=== PATIENT | female | born 1990 | race Caucasian/White ===

== ENCOUNTER 2017-09-12 02:11 | Emergency (ER) | payer MEDICAID ==
[2017-09-12] MEDS: IBUPROFEN 600 MG TAB PO (04:11)
== END 2017-09-12 04:51 | disposition home or self-care (01) ==
LOC: FTE 02:11
DX: O99.89 Other specified diseases and conditions complicating pregnancy, childbirth and the puerperium (principal); H65.01 Acute serous otitis media, right ear; Z3A.30 30 weeks gestation of pregnancy
CPT/HCPCS: 99283; Z7502

== ENCOUNTER 2017-09-14 19:23 | Outpatient (CLI) | payer MEDICAID ==
[2017-09-14 20:52] LABS: ADD MAN DIFF? NO
[2017-09-14 20:57] LABS: BASOPHILS % 0.4 % (0.0-2.0); EOSINOPHILS # 0.1 10^3/ul (0.0-0.5); EOSINOPHILS % 1.6 % (0.0-7.0); HEMATOCRIT 33.7 % (37.0-47.0); HEMOGLOBIN 11.4 g/dl (12.0-16.0); LYMPHOCYTES # 1.8 10^3/ul (0.8-2.9); LYMPHOCYTES % 24.3 % (15.0-51.0); MEAN CORPUSCULAR HEMOGLOBIN 29.2 pg (29.0-33.0); MEAN CORPUSCULAR HGB CONC 33.8 g/dl (32.0-37.0); MEAN CORPUSCULAR VOLUME 86.4 fl (82.0-101.0); MEAN PLATELET VOLUME 10.1 fl (7.4-10.4); MONOCYTE # 0.7 10^3/ul (0.3-0.9); MONOCYTES % 9.1 % (0.0-11.0); NEUTROPHIL # 4.9 10^3/ul (1.6-7.5); NEUTROPHILS % 64.2 % (39.0-77.0); PLATELET COUNT 263 10^3/UL (140-415); RED CELL DISTRIBUTION WIDTH 14.7 % (11.5-14.5)
[2017-09-14 20:57] LABS: WHITE BLOOD COUNT 7.6 10^3/ul (4.8-10.8)
[2017-09-14 21:04] LABS: ADD UMIC YES; UR ASCORBIC ACID NEGATIVE (NEGATIVE); UR BACTERIA FEW /HPF (NONE SEEN); UR BILIRUBIN (Dip) NEGATIVE (NEGATIVE); UR BLOOD (Dip) NEGATIVE (NEGATIVE); UR CLARITY CLEAR (CLEAR); UR COLOR STRAW (YELLOW); UR GLUCOSE (Dip) NEGATIVE (NEGATIVE); UR KETONES (Dip) NEGATIVE (NEGATIVE); UR LEUKOCYTE ESTERASE (Dip) TRACE Leu/ul (NEGATIVE); UR NITRITE (Dip) NEGATIVE (NEGATIVE); UR RBC 1 /HPF (0-5); UR SPECIFIC GRAVITY (Dip) 1.006 (1.003-1.030); UR SQUAMOUS EPITHELIAL CELL FEW /HPF (FEW); UR TOTAL PROTEIN (Dip) NEGATIVE (NEGATIVE); UR UROBILINOGEN (Dip) NEGATIVE (NEGATIVE); UR WBC 1 /HPF (0-5)
[2017-09-14] MEDS ORDERED: LIDOCAINE 1.5%/EPI MPF (SDV) 30 ML VIAL (21:59)
== END 2017-09-14 23:11 | disposition home or self-care (01) ==
LOC: OBT 19:23 → L-D 19:25 → OBT 23:11
DX: O26.892 Other specified pregnancy related conditions, second trimester (principal); R10.2 Pelvic and perineal pain; Z3A.25 25 weeks gestation of pregnancy
CPT/HCPCS: 76815; 76817; 81001; 85025; 87086

== ENCOUNTER 2017-10-06 14:04 | Outpatient (CLI) | payer MEDICAID ==
[2017-10-06 14:43] LABS: ADD MAN DIFF? NO
[2017-10-06 14:45] LABS: WHITE BLOOD COUNT 6.5 10^3/ul (4.8-10.8)
[2017-10-06 14:45] LABS: BASOPHILS % 0.5 % (0.0-2.0); EOSINOPHILS % 0.6 % (0.0-7.0); HEMATOCRIT 33.2 % (37.0-47.0); HEMOGLOBIN 11.3 g/dl (12.0-16.0); LYMPHOCYTES # 1.4 10^3/ul (0.8-2.9); LYMPHOCYTES % 21.6 % (15.0-51.0); MEAN CORPUSCULAR VOLUME 85.1 fl (82.0-101.0); MEAN PLATELET VOLUME 10.8 fl (7.4-10.4); MONOCYTE # 0.7 10^3/ul (0.3-0.9); MONOCYTES % 10.1 % (0.0-11.0); NEUTROPHIL # 4.3 10^3/ul (1.6-7.5); NEUTROPHILS % 66.9 % (39.0-77.0); PLATELET COUNT 242 10^3/UL (140-415); RED CELL DISTRIBUTION WIDTH 14.6 % (11.5-14.5)
[2017-10-06 14:51] LABS: ADD UMIC NO; UR AMORPHOUS CRYSTAL FEW /HPF (NONE SEEN); UR ASCORBIC ACID NEGATIVE (NEGATIVE); UR BACTERIA FEW /HPF (NONE SEEN); UR BILIRUBIN (Dip) NEGATIVE (NEGATIVE); UR BLOOD (Dip) NEGATIVE (NEGATIVE); UR CLARITY SLIGHTLY CLOUDY (CLEAR); UR COLOR YELLOW (YELLOW); UR GLUCOSE (Dip) NEGATIVE (NEGATIVE); UR KETONES (Dip) NEGATIVE (NEGATIVE); UR LEUKOCYTE ESTERASE (Dip) NEGATIVE Leu/ul (NEGATIVE); UR NITRITE (Dip) NEGATIVE (NEGATIVE); UR RBC 4 /HPF (0-5); UR SPECIFIC GRAVITY (Dip) 1.008 (1.003-1.030); UR SQUAMOUS EPITHELIAL CELL FEW /HPF (FEW); UR TOTAL PROTEIN (Dip) NEGATIVE (NEGATIVE); UR UROBILINOGEN (Dip) NEGATIVE (NEGATIVE); UR WBC 4 /HPF (0-5)
[2017-10-06 15:02] LABS: ALANINE AMINOTRANSFERASE 25 IU/L (13-69); ALBUMIN 3.5 g/dl (3.3-4.9); ALBUMIN/GLOBULIN RATIO 1.12; ALKALINE PHOSPHATASE 131 IU/L (42-121); ANION GAP 14 (8-16); ASPARTATE AMINO TRANSFERASE 14 IU/L (15-46); BILIRUBIN,INDIRECT 0.1 mg/dl (0-1.1); BILIRUBIN,TOTAL 0.1 mg/dl (0.2-1.3); BLOOD UREA NITROGEN 5 mg/dl (7-20); CALCIUM 9.5 mg/dl (8.4-10.2); CARBON DIOXIDE 22 mmol/L (21-31); CHLORIDE 108 mmol/L (97-110); CREATININE 0.49 mg/dl (0.44-1.00); GLUCOSE 95 mg/dl (70-220); POTASSIUM 3.3 mmol/L (3.5-5.1); SODIUM 141 mmol/L (135-144); TOTAL PROTEIN 6.6 g/dl (6.1-8.1); URIC ACID 2.8 mg/dl (3.1-7.9)
[2017-10-06 15:08] LABS: INR 0.97
[2017-10-06 15:09] LABS: PARTIAL THROMBOPLASTIN TIME 27.9 Sec (25.0-35.0)
== END 2017-10-06 16:44 | disposition home or self-care (01) ==
LOC: OBT 14:04 → L-D 14:05 → OBT 16:44
DX: O62.9 Abnormality of forces of labor, unspecified (principal); Z3A.34 34 weeks gestation of pregnancy
CPT/HCPCS: 76818; 80053; 81001; 81003; 84560; 85025; 85384; 85610; 85730

== ENCOUNTER 2017-11-16 22:23 | Inpatient (IN) | payer MEDICAID ==
[2017-11-16] MEDS: LACTATED RINGER'S 1,000 ML IV (23:00)
[2017-11-16] MEDS ORDERED: LACTATED RINGER'S 1,000 ML IV (23:05)
[2017-11-16] MEDS ORDERED: METHYLERGONOVINE 0.2 MG INJ IM (23:30)
[2017-11-16] MEDS ORDERED: IBUPROFEN 600 MG TAB PO (23:30)
[2017-11-16] MEDS ORDERED: MISOPROSTOL 200 MCG TAB PR (23:30)
[2017-11-16] MEDS ORDERED: OXYTOCIN 30 UNITS/LR 500 ML IV (23:30)
[2017-11-16] MEDS ORDERED: OXYCODONE/ASPIRIN (4.88/325) TAB PO (23:30)
[2017-11-16] MEDS ORDERED: LIDOCAINE 1% (MPF) 30 ML INJ INJ (23:30)
[2017-11-16] MEDS ORDERED: CARBOPROST 250 MCG INJ IM (23:30)
[2017-11-16 23:37] LABS: ADD MAN DIFF? NO
[2017-11-16 23:39] LABS: WHITE BLOOD COUNT 6.6 10^3/ul (4.8-10.8)
[2017-11-16 23:39] LABS: BASOPHILS % 0.6 % (0.0-2.0); EOSINOPHILS # 0.1 10^3/ul (0.0-0.5); EOSINOPHILS % 1.1 % (0.0-7.0); HEMATOCRIT 33.7 % (37.0-47.0); HEMOGLOBIN 11.2 g/dl (12.0-16.0); LYMPHOCYTES % 30.7 % (15.0-51.0); MEAN CORPUSCULAR HEMOGLOBIN 28.1 pg (29.0-33.0); MEAN CORPUSCULAR HGB CONC 33.2 g/dl (32.0-37.0); MEAN CORPUSCULAR VOLUME 84.5 fl (82.0-101.0); MEAN PLATELET VOLUME 11.8 fl (7.4-10.4); MONOCYTE # 0.6 10^3/ul (0.3-0.9); MONOCYTES % 9.7 % (0.0-11.0); NEUTROPHIL # 3.8 10^3/ul (1.6-7.5); NEUTROPHILS % 57.6 % (39.0-77.0); PLATELET COUNT 223 10^3/UL (140-415); RED BLOOD COUNT 3.99 10^6/ul (4.20-5.40); RED CELL DISTRIBUTION WIDTH 15.2 % (11.5-14.5)
[2017-11-16] MEDS: AMPICILLIN 2 GM/NS (PMX) 100 ML IV (23:48)
[2017-11-17 00:04] LABS: INR 0.97
[2017-11-17 00:05] LABS: PARTIAL THROMBOPLASTIN TIME 26.4 Sec (25.0-35.0)
[2017-11-17] MEDS: DINOPROSTONE 10 MG VAG SUPP VAG (00:16)
[2017-11-17 00:28] LABS: HEPATITIS B SURFACE ANTIGEN NEGATIVE (NEGATIVE)
[2017-11-17] MEDS: AMPICILLIN 1 GM/NS (PMX) 50 ML IV ×6 (03:59→23:58)
[2017-11-17] MEDS: LACTATED RINGER'S 1,000 ML IV ×3 (06:53→23:58)
[2017-11-17 17:28] LABS: RAPID PLASMA REAGIN NONREACTIVE (NR)
[2017-11-17] MEDS ORDERED: MINERAL OIL LIGHT 10 ML VIAL TOP (23:30)
[2017-11-18] MEDS: BUTORPHANOL 2 MG INJ IV ×2 (01:33→10:48)
[2017-11-18] MEDS: MISOPROSTOL 25 MCG CAPSULE PO ×6 (02:24→20:37)
[2017-11-18] MEDS: AMPICILLIN 1 GM/NS (PMX) 50 ML IV ×5 (03:58→21:47)
[2017-11-18] MEDS: LACTATED RINGER'S 1,000 ML IV ×3 (08:37→19:03)
[2017-11-18] MEDS ORDERED: NALOXONE (0.4 MG/ML) INJ IV (18:30)
[2017-11-18] MEDS ORDERED: DIPHENHYDRAMINE 50 MG INJ IV (18:30)
[2017-11-18] MEDS ORDERED: ONDANSETRON 4 MG INJ IV (18:30)
[2017-11-18] MEDS ORDERED: EPHEDrine SULFATE 50 MG/5 ML SYG IV (18:30)
[2017-11-18] MEDS ORDERED: MINERAL OIL LIGHT 10 ML VIAL TOP (20:30)
[2017-11-19] MEDS: AMPICILLIN 1 GM/NS (PMX) 50 ML IV ×2 (01:58→06:45)
[2017-11-19] MEDS: LACTATED RINGER'S 1,000 ML IV (02:22)
[2017-11-19] MEDS: FENTAnyl 2MCG/ML-ROPIV 0.2% 100 ML BAG EPI (04:57)
[2017-11-19] MEDS: OXYTOCIN 30 UNITS/LR 500 ML IV ×2 (09:51→10:33)
[2017-11-19] MEDS ORDERED: LACTATED RINGER'S 1,000 ML IV* (12:27)
[2017-11-19] MEDS ORDERED: OXYTOCIN 30 UNITS/LR 500 ML IV (12:30)
[2017-11-19] MEDS ORDERED: ZOLPIDEM 5 MG TAB PO (12:30)
[2017-11-19] MEDS ORDERED: CARBOPROST 250 MCG INJ IM (12:30)
[2017-11-19] MEDS ORDERED: MISOPROSTOL 200 MCG TAB PR (12:30)
[2017-11-19] MEDS ORDERED: METHYLERGONOVINE 0.2 MG INJ IM (12:30)
[2017-11-19] MEDS: MINERAL OIL LIGHT 10 ML VIAL TOP (12:33)
[2017-11-19] MEDS: IBUPROFEN 600 MG TAB PO ×2 (13:25→18:18)
[2017-11-19] MEDS: CEPHALEXIN 500 MG CAP PO ×2 (13:25→18:18)
[2017-11-19] MEDS: LANOLIN 7 GM TUBE TOP (13:25)
[2017-11-19] MEDS: DIBUCAINE 1% 30 GM OINT PR (13:26)
[2017-11-19] MEDS: BENZOCAINE 20% 56 ML SPRAY TOP (13:27)
[2017-11-19] MEDS: WITCH HAZEL/GLYCERIN PAD PR (13:27)
[2017-11-19] MEDS: MAGNESIUM HYDROXIDE 30ML CUP PO (21:01)
[2017-11-19] MEDS: SENNA/DOCUSATE NA (8.6MG/50MG) TAB PO (21:02)
[2017-11-19] MEDS: HYDROCODONE/APAP (5/325) TAB PO (21:02)
[2017-11-20] MEDS: CEPHALEXIN 500 MG CAP PO ×5 (00:55→23:48)
[2017-11-20] MEDS: IBUPROFEN 600 MG TAB PO ×5 (00:56→23:47)
[2017-11-20] MEDS: SENNA/DOCUSATE NA (8.6MG/50MG) TAB PO ×2 (08:45→20:34)
[2017-11-20] MEDS: MAGNESIUM HYDROXIDE 30ML CUP PO ×2 (08:45→20:34)
[2017-11-20 09:28] LABS: ADD MAN DIFF? NO
[2017-11-20 09:31] LABS: WHITE BLOOD COUNT 8.3 10^3/ul (4.8-10.8)
[2017-11-20 09:31] LABS: BASOPHILS % 0.5 % (0.0-2.0); EOSINOPHILS # 0.1 10^3/ul (0.0-0.5); HEMATOCRIT 29.5 % (37.0-47.0); HEMOGLOBIN 9.6 g/dl (12.0-16.0); LYMPHOCYTES # 1.7 10^3/ul (0.8-2.9); LYMPHOCYTES % 20.5 % (15.0-51.0); MEAN CORPUSCULAR HEMOGLOBIN 27.5 pg (29.0-33.0); MEAN CORPUSCULAR HGB CONC 32.5 g/dl (32.0-37.0); MEAN CORPUSCULAR VOLUME 84.5 fl (82.0-101.0); MONOCYTE # 0.6 10^3/ul (0.3-0.9); MONOCYTES % 7.4 % (0.0-11.0); NEUTROPHIL # 5.8 10^3/ul (1.6-7.5); NEUTROPHILS % 70.1 % (39.0-77.0); PLATELET COUNT 171 10^3/UL (140-415); RED BLOOD COUNT 3.49 10^6/ul (4.20-5.40); RED CELL DISTRIBUTION WIDTH 15.7 % (11.5-14.5)
[2017-11-20] MEDS: HYDROCODONE/APAP (5/325) TAB PO (22:01)
[2017-11-21] MEDS: IBUPROFEN 600 MG TAB PO ×2 (05:52→11:30)
[2017-11-21] MEDS: CEPHALEXIN 500 MG CAP PO ×2 (05:52→11:31)
[2017-11-21] MEDS: MAGNESIUM HYDROXIDE 30ML CUP PO (08:57)
[2017-11-21] MEDS: SENNA/DOCUSATE NA (8.6MG/50MG) TAB PO (08:57)
[2017-11-21] MEDS: VARICELLA VACCINE LIVE/PF 1,350 UNIT/0.5 ML ML SC* (08:57)
[2017-11-21] MEDS: MEASLES,MUMPS,RUBELLA VACCINE INJ SC* (09:00)
[2017-11-21] MEDS: DIPHTH/TET/ACEL PERTUSS (ADULT) 0.5 ML VIAL IM* (11:32)
== END 2017-11-21 16:07 | disposition home or self-care (01) | DRG 775 ==
LOC: PP1 11-19 11:41 → L-D 22:23
PROVIDERS: Obstetrics & Gynecology
PROC: 10E0XZZ Delivery of Products of Conception, External Approach (ICD-10-PCS; principal; 2017-11-18)
PROC: 0KQM0ZZ Repair Perineum Muscle, Open Approach (ICD-10-PCS; 2017-11-18)
PROC: 3E033VJ Introduction of Other Hormone into Peripheral Vein, Percutaneous Approach (ICD-10-PCS; 2017-11-18)
DX: O48.0 Post-term pregnancy (principal); Z3A.40 40 weeks gestation of pregnancy; O70.1 Second degree perineal laceration during delivery; Z37.0 Single live birth
CPT/HCPCS: 62319; 85025; 85610; 85730; 86592; 86850; 86900; 86901; 87340; 90715; 99464